=== PATIENT | female | born 1995 | race African-American/Black ===

== ENCOUNTER 2018-07-26 03:14 | Emergency (ER) | payer OTHER ==
[~2018-07-26] VITALS: Ht 172.7 cm; Wt 61.2 kg
[~2018-07-26 03:14] MED LIST: ZOFRAN ODT4 MG PO
[2018-07-26] MEDS ORDERED: PREDNISONE 20 M20 MG PO (04:47)
[2018-07-26 04:52] VITALS: BP 105/49
== END 2018-07-26 04:53 | disposition home or self-care (01) ==
LOC: ER 03:14
DX: T78.02XA Anaphylactic reaction due to shellfish (crustaceans), initial encounter (principal); L50.0 Allergic urticaria; J45.909 Unspecified asthma, uncomplicated